=== PATIENT | male | born 1970 | race Caucasian/White ===

== ENCOUNTER 2025-05-09 04:20 | Emergency (ER) | payer MEDICAID, OTHER ==
[~2025-05-09] VITALS: Ht 167.6 cm; Wt 111.0 kg
[2025-05-09 04:47] VITALS: TEMP 36.8
[2025-05-09 05:06] LABS: BASOPHILS % 0.3 % (0.0-2.0); EOSINOPHILS % 1.9 % (0.0-5.0); HEMATOCRIT. 45.2 % (42.0-52.0); HEMOGLOBIN. 15.1 g/dL (14.0-18.0); LYMPHOCYTES % 19.3 % (20.0-50.0); MEAN PLATELET VOLUME 9.0 fl (7.4-10.4); MONOCYTES % 7.7 % (2.0-8.0); NEUTROPHILS % 70.8 % (40.0-76.0); PLATELET 206 x1000/uL (130-400); RED BLOOD CELL COUNT 5.29 mill/uL (4.7-6.1); RED CELL DISTRIBUTION WIDTH 14.3 % (11.6-14.6)
[2025-05-09 05:20] LABS: CREATININE 1.3 mg/dL (0.6-1.3); UREA NITROGEN BLOOD 19 mg/dL (9-23)
[2025-05-09 05:22] LABS: ASPARTATE AMINOTRANSFERASE 36 IU/L (<34); BILIRUBIN DIRECT 0.2 mg/dL (<=3.0); BILIRUBIN TOTAL 0.4 mg/dL (0.1-1.0); PROTEIN TOTAL 7.3 g/dL (6.0-8.3)
[2025-05-09 06:31] VITALS: BP 148/94; PULSE 91; RESP 15; O2SAT 97
[2025-05-09] MEDS: INSULIN REGULAR (HUMULIN R) 1000UNITS/10ML VIAL IV ONE (07:13)
== END 2025-05-09 07:00 | disposition home or self-care (01) ==
LOC: ER 04:20
DX: E11.65 Type 2 diabetes mellitus with hyperglycemia (principal); R19.7 Diarrhea, unspecified
CPT/HCPCS: 36415; 80048; 80076; 85025; 93005; 99284

== ENCOUNTER 2025-08-10 00:14 | Emergency (ER) | payer OTHER ==
[~2025-08-10] VITALS: Ht 167.6 cm; Wt 109.0 kg
[2025-08-10 01:13] LABS: BASOPHILS % 0.7 % (0.0-2.0); EOSINOPHILS % 3.9 % (0.0-5.0); HEMATOCRIT. 42.1 % (42.0-52.0); HEMOGLOBIN. 14.0 g/dL (14.0-18.0); LYMPHOCYTES % 22.6 % (20.0-50.0); MEAN PLATELET VOLUME 8.2 fl (7.4-10.4); MONOCYTES % 6.2 % (2.0-8.0); NEUTROPHILS % 66.6 % (40.0-76.0); PLATELET 249 x1000/uL (130-400); RED BLOOD CELL COUNT 4.95 mill/uL (4.7-6.1); RED CELL DISTRIBUTION WIDTH 13.9 % (11.6-14.6)
[2025-08-10 01:14] LABS: CREATININE 1.1 mg/dL (0.6-1.3); UREA NITROGEN BLOOD 15 mg/dL (9-23)
[2025-08-10 01:16] LABS: TROPONIN I HIGH SENSITIVITY 4 ng/L (3.0-53)
[2025-08-10] MEDS: ACETAMINOPHEN 325MG TABLET PO ONE (01:20)
[2025-08-10] MEDS: ALBUTEROL (0.083%) 2.5MG/3ML NEB HHN ONE (01:33)
[2025-08-10 01:34] VITALS: PULSE 95; RESP 18; O2SAT 97
[2025-08-10] MEDS ORDERED: ACET-2708 MT (02:07)
[2025-08-10] MEDS ORDERED: ALBU90AE INH (02:07)
[2025-08-10 02:10] VITALS: BP 153/93; PULSE 98; RESP 18; TEMP 36.8; O2SAT 98
== END 2025-08-10 02:15 | disposition home or self-care (01) ==
LOC: ER 00:14
DX: B34.9 Viral infection, unspecified (principal); J06.9 Acute upper respiratory infection, unspecified; E11.9 Type 2 diabetes mellitus without complications; Z79.899 Other long term (current) drug therapy; Z20.822 Contact with and (suspected) exposure to COVID-19
CPT/HCPCS: 80048; 85025; 84484; 36415; 71045; 94640; 93005; 99285; 87426; Z7610 ×3; 94070; 94664; 98960